=== PATIENT | female | born 1950 | race Caucasian/White ===

== ENCOUNTER 2017-07-17 03:10 | Inpatient (IN) | payer OTHER ==
--- NOTE | 2017-07-09 13:23 | History & Physical Pre-Op ---
General Information and [facility] MD Statement: I have seen and personally examined BULL CORDOVA and documented this H&P. The patient is a 67 year old F who presented with a patient stated chief complaint of low back pain that radiates to her right buttock, lateral hip, and anterior thigh. Source of Information: patient, old records Exam Limitations: no limitations History of Present Illness: Bull is a 67-year-old female who is complaining of progressively worsening low back pain that radiates to her right buttock, lateral hip, and anterior thigh. She does occasionally experience symptoms in her left leg. She denies any groin pain nor any weakness in her lower extremities. She does admit to numbness in her left buttock which began in January 2016 after her last surgery but does claim that it is improving. Bull states that her symptoms are improved with sitting as well as lying and worse with walking or standing. Bull is of course status post revision left L3-4, L4-5, and L5-S1 posterior lumbar decompression fusion with local bone from January, and her initial surgery in 2012. She has failed to respond to conservative measures and given the fact that her imaging studies show a right L1-2 disc herniation causing severe spinal stenosis along with a ganglion cyst at the L4-5 level and varying degrees of spinal stenosis at L2-3 and L3-4, Bull wants nothing more to do with nonsurgical treatment and has been scheduled for a revision L1-L5 posterior lumbar decompression fusion with local versus iliac crest bone grafting on 2017. Allergies/Medications Allergies: Coded Allergies: spironolactone (Intermediate, HIVES 02/07/16) Gadolinium-Containing Contrast Medi (HIVES/WELTS ON SIDE OF FACE 07/12/17) Iodinated Contrast- Oral and IV Dye (Iodinated Contrast Media - IV Dye) (HIVES/ WELTS ON SIDES OF FACE 07/12/17) lisinopril (Intermediate, INCREASED BP 02/07/16) Home Med list Acetaminophen (Tylenol Extra Strength) 500 MG TABLET 2 TAB PO PRN PAIN ( Reported) Albuterol Sulfate (Ventolin Hfa) 18 GM HFA.AER.AD 2 PUF INH PRN ASTHMA ( Reported) Calcium Carbonate 260 MG TABLET 650 MG PO BID HEALTH SUPPLEMENT Cetirizine HCl (Zyrtec) 10 MG TABLET 1 TAB PO DAILY ALLERGIES (Reported) Cholecalciferol (Vitamin D3) 1,000 UNIT TABLET 1,000 IU PO DAILY GENERAL HEALTH Levothyroxine Sodium 150 MCG TABLET 1 TAB PO DAILY THYROID (Reported) Losartan/Hydrochlorothiazide (Hyzaar 50-12.5 Tablet) 1 EACH TABLET 1 TAB PO DAILY BP (Reported) Magnesium Hydroxide (Milk Of Magnesia) (Unknown Strength) ORAL.SUSP (Unknown Dose) PO PRN CONSTIPATION (Reported) Mometasone/Formoterol (Dulera 200 Mcg/5 Mcg Inhaler) 200 MCG-5 MCG/ACTUATION HFA.AER.AD 2 PUF INH QAM ASTHMA (Reported) Montelukast Sodium (Singulair) 10 MG TABLET 1 TAB PO DAILY ALLERGIES ( Reported) Multivitamin (One Daily Multivitamin) 1 EACH TABLET 1 TAB PO DAILY GENERAL HEALTH Rosuvastatin Calcium (Crestor) 5 MG TABLET 1 TAB PO QPM CHOLESTEROL (Reported ) Triamcinolone Acetonide (Nasacort) 55 MCG SPRAY 2 SPRAY NASB DAILY PRN ALLERGIES/ASTHMA (Reported) Compliance With Home Meds: GOOD Past History Medical History Neurological: migraine EENT: allergies, sinusitis Cardiovascular: hypertension, hyperlipidemia Respiratory: asthma, bronchitis, obstructive sleep apnea Gastrointestinal: NONE Hepatic: NONE Renal: NONE Musculoskeletal: chronic back pain, disk herniation, degen joint disease, osteoarthritis (knees), sciatica, spinal stenosis Psychiatric: NONE Endocrine: hypothyroidism Blood Disorders: NONE Cancer(s): NONE MANAGER PSYCHOLOGY/Reproductive: NONE History of MRSA: No History of VRE: No History of CDIFF: No Surgical History Pertinent Surgical History: cholecystectomy, knee replacement (left 09/2016), laminectomy, spinal fusion, tubal ligation, s/p bunion resection, s/p PLDF 2012, s/p Rev. left L3-4, L4-5, L5-S1 PLDF with local bone, 02/08/16 Past Family/Social History Family History Relations & Conditions if any MOTHER (DiabetesHypertension). , Age 84. FHx: early [place], Onset: 50-60. BROTHER (MICOPDDiabetes Mellitus). Age 78. FH myocardial infarction male first degree age known FATHER, , Age 79; Cause: Gastric cancer. FH: gastric cancer SISTER (DiabetesHypertension). Age 70. Psychosocial History Where Do You Live? Home Who Do You Live With? 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 Exam & Diagnostic Data Last 24 Hrs of Vital Signs/I&O Height: 5'6" Weight: 250lbs. Physical Exam General Appearance Alert, Oriented X3, Cooperative, No Acute Distress Skin No Rashes, No Breakdown, No Significant Lesion HEENT Atraumatic, PERRLA, EOMI, Mucous Membr. moist/pink Neck Supple, No JVD, No thryomegaly, +2 Carotid Pulse wo Bruit Lymphatic Cervical nl Cardiovascular Regular Rate, Normal S1, Normal S2, No Murmurs Lungs Clear to Auscultation, Normal Air Movement Abdomen Normal Bowel Sounds, Soft, No Tenderness, No Masses Neurological Normal Speech, Strength at 5/5 X4 Ext, Normal Tone, Sensation Intact, Reflexes 2+, ANTALGIC GAIT Extremities No Clubbing, No Cyanosis, No Edema, Normal Pulses Vascular Normal Pulses Medication List Current Psychiatric Med(s): Rosuvastatin 5mg daily Synthroid 0.150mg daily Hyzaar 50/12.5 1 po daily Zyrtec 10mg daily Singulair 10mg daily Ventolin HFA inhaler 2 puffs in am Nasocort prn Assessment/Plan Assessment/Plan: Assessment: Right L1-2 HNP with severe spinal stenosis, L4-5 ganglion cyst, Spinal stenosis at L2- 3 and L3-4. Plan: Bull is scheduled for a revision posterior lumbar decompression fusion L1- L5 with local bone versus iliac crest bone grafting on 07/17/2017. We discussed the procedure in full detail as well as the pre-and postoperative course, follow -up care, and anticipated recovery. We also discussed the do's and don'ts and postoperative discharge instructions. We discussed the benefits, alternatives, and risks, not to exclude, , paralysis, infection, bleeding, continued pain , failure of the surgery, need for future surgery, DVT, vascular injury, CSF leak, etc., and given these risks, she still wishes to proceed. We discussed the use of Benadryl versus Claritin to be used with her morphine and Percocet due to itching. We also discussed the use of milk of magnesia tablets or liquids to help with constipation postoperatively. Bull is scheduled to follow- up with her primary care physician, Dr. Quiroz for preoperative clearance. Any changes in this patient's plan is based on this patient's outpatient clinical presentation. As Ranked By This Provider Problem List: 1. Hypothyroidism 2. Hypertension 3. Asthma 4. Obstructive sleep apnea 5. Osteoarthritis of knee 6. Migraine 7. Status post cholecystectomy 8. History of bilateral tubal ligation Copies To: Oewn PRUETT,Saul Attending MD Review Statement Attending Statement Attending MD Statement: examined this patient, discuss w/resident/PA/LOSS PREVENTION INVESTIGATOR, agreed w/resident/PA/LOSS PREVENTION INVESTIGATOR, reviewed images
[~2017-07-17] VITALS: Ht 167.6 cm; Wt 121.6 kg
[~2017-07-17 03:10] MED LIST: BISAC-EVAC10 M1 PR; CALCIUM CARBON260 M1 PO; CRESTOR5 M1 PO; DOCUSATE SODIU100 M3 PO; DULERA 200 MCG/13 GM INH; HYDROCHLOROTH12.5 M2 PO; HYZAAR 50-12.51 EACH PO; LEVOTHYROXINE150 MCG PO; MILK OF MA400 MG/52 PO; NASACORT16.9 ML NASB; NASOCORT NAS; ONE DAILY MULT1 EAC2 PO; PERCOCET 5-3251 EACH PO; SINGULAIR10 M1 PO; SYNTHROID125 MCG PO; TYLENOL EXTRA500 M2 PO; TYLENOL325 M1 PO; VENTOLIN HFA18 GM INH; VITAMIN D31000 UNI2 PO; ZYRTEC10 M3 PO
--- NOTE | 2017-07-17 10:51 | Operative Report ---
Operative/Inv Procedure Report Surgery Date: 07/17/17 Name of Procedure: Inspection of the lumbosacral fusion mass neurectomies L1-L2 L3-L4. Discectomy L1 to L2 3 L3 4. Lateral fusion with autologous local bone graft L1 through L4. Neuro lysis L2 and L3 nerve roots on the right Fluoroscopy. Pre-Operative Diagnosis: Spinal stenosis L1 L2 to L2 L3, L3-L4. Post-Operative Diagnosis: same Estimated Blood Loss: 200 Surgeon/Welding Machine Operator Resistance: Owen PRUETT,Saul Brasher M.D. Anesthesia: general endotracheal tube Operative/Procedure Note Note: After adequate general anesthesia was achieved, the patient was placed in the position. The back was sterilely prepped and draped. The previous incision was extended cephalad and the dissection was carried over the dorsal elements with electrocautery. A metallic optic was placed and fluoroscopy was used to identify surgical level. The high-speed bur was used to decorticate the lamina at L1-L2 and L2-L3 and L3-L4. The previous fusion was inspected on the right side extending down to the lower lumbar spine and found to be solid. Significant scar tissue was debrided at the L34 level the curettes and Kerrisons were used to perform the laminectomies at L1 L2 L3 and L4 on the right side. Discectomies were performed as well as an there was severe foraminal stenosis at all 3 levels. Neuro lysis were performed at the severely stenotic L1-L2 and L2- L3 levels involving the L2 and L3 nerve roots. The stenosis was most severe at the middle level L23. The wound was copiously irrigated and Gelfoam was laid over the laminotomy site. The lateral intertransverse process region was decorticated with the high-speed bur as were the facets. Bone graft was packed laterally from L1 to L4. Wound was irrigated and a closure the lumbar dorsal fascia was performed with a double suture as was the subcutaneous tissue and the skin was closed with trell
--- NOTE | 2017-07-17 11:49 | RADIOLOGY REPORT ---
EXAMINATION: Intraoperative fluoroscopic images, lumbar spine region CLINICAL INFORMATION: L5-S1 laminar fusion. COMPARISON: Plain film study dated 02/08/2016. TECHNIQUE: Intraoperative fluoroscopic imaging. FINDINGS: Multiple intraoperative views of the lumbar spine. Dose: 2.68 mg Image number: 3 images.
[2017-07-17] MEDS ORDERED: PERCOCET 5-3251 EACH PO (12:03)
[2017-07-17] MEDS ORDERED: TYLENOL EXTRA500 M2 PO (12:03)
[2017-07-17] MEDS ORDERED: BENADRYL25 MG PO (12:03)
[2017-07-17] MEDS ORDERED: DULCOLAX10 M1 RC (12:03)
[2017-07-17] MEDS ORDERED: COLACE100 M1 PO (12:03)
[2017-07-17] MEDS ORDERED: MILK OF MA400 MG/52 PO (12:03)
--- NOTE | 2017-07-17 12:04 | Patient Discharge Instructions ---
Acute Coronary Syndrome Inclusion Criteria At DC or during hospital stay patient has or had the following: ACS DIAGNOSIS No Discharge Core Measures Meds if any: Prescribed or Continued at Discharge Meds if any: NOT Prescribed or Continued at Discharge Congestive Heart Failure Inclusion Criteria At DC or during hospital stay patient has or had the following: CHF DIAGNOSIS No Discharge Core Measures Meds if any: Prescribed or Continued at Discharge Meds if any: NOT Prescribed or Continued at Discharge Cerebrovascular accident Inclusion Criteria At DC or during hospital stay patient has or had the following: CVA/TIA Diagnosis No Discharge Core Measures Meds if any: Prescribed or Continued at Discharge Meds if any: NOT Prescribed or Continued at Discharge Venous thromboembolism Inclusion Criteria VTE Diagnosis No VTE Type NONE VTE Confirmed by (Test) NONE Discharge Core Measures - Per Current guidelines, there needs to be overlap - treatment for the first 5 days of Warfarin therapy. - If discharged on Warfarin prior to 5 days of - overlap therapy, the patient will need to be - assessed for post discharge needs including - *Post discharge parental anticoagulation - *Warfarin and/or parental anticoagulation education - *Follow up date to check INR post discharge At least 5 days overlap therapy as Inpatient No Meds if any: Prescribed or Continued at Discharge Note: Overlap Therapy is Warfarin and Anticoagulant Meds if any: NOT Prescribed or Continued at Discharge
[2017-07-17 12:10] LABS: ABSOLUTE BASOPHIL COUNT 0 /CUMM (0.0-0.2); ABSOLUTE EOSINOPHIL COUNT 0.1 /CUMM (0.0-0.7); ABSOLUTE GRANULOCYTE CT 7.4 /CUMM (1.4-6.5); ABSOLUTE LYMPH COUNT 1.1 /CUMM (1.2-3.4); ABSOLUTE MONOCYTE COUNT 0.2 /CUMM (0.10-0.60); BASOPHIL % 0.1 % (0.0-2.0); EOSINOPHIL % 0.7 % (0-5); HEMATOCRIT 34.2 % (37-47); MEAN CORPUSCULAR HGB CONC 32.5 G/DL (33.0-37.0); MEAN CORPUSCULAR VOLUME 83.2 FL (81.0-99.0); MEAN PLATELET VOLUME 7.3 FL (7.4-10.4); PLATELET COUNT 214 /CUMM (130-400); RBC DISTRIBUTION WIDTH 14.8 % (11.5-14.5); RED BLOOD CELL CT 4.11 /CUMM (4.20-5.40); WHITE BLOOD CELL COUNT 8.8 /CUMM (4.8-10.8)
[2017-07-17 12:16] LABS: GRANULOCYTE % 84.6 % (42.2-75.2)
--- NOTE | 2017-07-17 13:24 | Cons- Medical ---
Raciel Ardon 07/17/17 1324: General Information and HPI Consulting Request Date of Consult: 07/17/17 Requested By: Saul Weaver MD Reason for Consult: Medical comanagement of asthma, hypertension Source of Information: patient, family Exam Limitations: no limitations History of Present Illness: This is a 67-year-old female from [facility], with past medical history significant for asthma, hypothyroidism, hypertension, hyperlipidemia, obstructive sleep apnea not on CPAP, chronic back pain, degenerative joint disease, disc herniation, knee osteoarthritis, sciatica, spinal stenosis presented for elective back surgery for low back pain radiating to right buttock, leg and hip and anterior thigh. She is Status post revision left L3-4, L4-5, and L5-S1 posterior lumbar decompression fusion with local bone from January, and her initial surgery in 2012. She has failed to respond to conservative measures and given the fact that her imaging studies show a right L1-2 disc herniation causing severe spinal stenosis along with a ganglion cyst at the L4-5 level and varying degrees of spinal stenosis at L2-3 and L3-4, Dottie was scheduled for a revision L1-L5 posterior lumbar decompression fusion with local versus iliac crest bone grafting on 07/17/2017. She underwent lumbosacral fusion mass neurectomies L1- L2 L3-L4. Discectomy L1 to L2 3 L3 4. Lateral fusion with autologous local bone graft L1 through L4. Tolerated her procedure. Medical consult was requested for comanagement of her medical conditions asthma, hypertension. Dottie has progressively worsening low back pain that radiates to her right buttock, lateral hip, and anterior thigh. She does occasionally experience symptoms in her left leg. She denies any groin pain nor any weakness in her lower extremities. She does admit to numbness in her left buttock which began in January 2016 after her last surgery but does claim that it is improving. Dottie states that her symptoms are improved with sitting as well as lying and worse with walking or standing. On review of systems she denies any chest pain, short of breath, palpitations, fever, chills, productive cough, nausea, vomiting, abdominal pain, change in bladder or bowel habits. 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 She was never intubated. Hospitalized twice in the past for asthma exacerbations. She is compliant With her medications and inhalers. She never smoked, no alcohol abuse, no illicit drug abuse. She lives with her in [facility] and takes care of herself. Allergies/Medications Allergies: Coded Allergies: spironolactone (Intermediate, HIVES 02/07/16) Gadolinium-Containing Contrast Medi (HIVES/WELTS ON SIDE OF FACE 07/12/17) Iodinated Contrast- Oral and IV Dye (Iodinated Contrast Media - IV Dye) (HIVES/ WELTS ON SIDES OF FACE 07/12/17) lisinopril (Intermediate, INCREASED BP 02/07/16) Home Med List: Acetaminophen (Tylenol Extra Strength) 500 MG TABLET 2 TAB PO PRN PAIN ( Reported) Acetaminophen (Tylenol Extra Strength) 500 MG TABLET 1 TAB PO TID PRN TEMP>101 Albuterol Sulfate (Ventolin Hfa) 18 GM HFA.AER.AD 2 PUF INH PRN ASTHMA ( Reported) Bisacodyl (Dulcolax) 10 MG SUPP.RECT 1 SUP RC DAILY PRN CONSTIPATION Calcium Carbonate 260 MG TABLET 650 MG PO BID HEALTH SUPPLEMENT Cetirizine HCl (Zyrtec) 10 MG TABLET 1 TAB PO DAILY ALLERGIES (Reported) Cholecalciferol (Vitamin D3) 1,000 UNIT TABLET 1,000 IU PO DAILY GENERAL HEALTH diphenhydrAMINE HCl (Benadryl) 25 MG CAP 1 CAP PO Q6-PRN ITCHING Docusate Sodium (Colace) 100 MG CAPSULE 1 CAP PO BID PRN CONSTIPATION Levothyroxine Sodium 150 MCG TABLET 1 TAB PO DAILY THYROID (Reported) Losartan/Hydrochlorothiazide (Hyzaar 50-12.5 Tablet) 1 EACH TABLET 1 TAB PO DAILY BP (Reported) Magnesium Hydroxide (Milk Of Magnesia) (Unknown Strength) ORAL.SUSP (Unknown Dose) PO PRN CONSTIPATION (Reported) Magnesium Hydroxide (Milk Of Magnesia) 400 MG/5 ML ORAL.SUSP 5 ML PO Q8P PRN CONSTIPATION Mometasone/Formoterol (Dulera 200 Mcg/5 Mcg Inhaler) 200 MCG-5 MCG/ACTUATION HFA.AER.AD 2 PUF INH QAM ASTHMA (Reported) Montelukast Sodium (Singulair) 10 MG TABLET 1 TAB PO DAILY ALLERGIES ( Reported) Multivitamin (One Daily Multivitamin) 1 EACH TABLET 1 TAB PO DAILY GENERAL HEALTH Oxycodone HCl/Acetaminophen (Percocet 5-325 MG Tablet) 5 MG-325 MG TABLET 1-2 TAB PO Q4-6 PRN PAIN Rosuvastatin Calcium (Crestor) 5 MG TABLET 1 TAB PO QPM CHOLESTEROL (Reported ) Triamcinolone Acetonide (Nasacort) 55 MCG SPRAY 2 SPRAY NASB DAILY PRN ALLERGIES/ASTHMA (Reported) Current Medications: Current Medications Sig/Ayana Start time Last Medication Dose Route Stop Time Status Admin Acetaminophen 650 MG Q4P PRN 07/17 1145 AC PO Albuterol Sulfate 2 PUF Q6PRN PRN 07/17 1130 AC INH Atorvastatin Calcium 20 MG 1700 07/17 1700 AC PO Bisacodyl 10 MG DAILY NEEDED PRN 07/17 1145 AC OH Budesonide/ 2 PUF BID 07/17 2200 AC Formoterol Fumarate INH Calcium Carbonate 650 MG BID 07/17 2200 AC PO Cefazolin Sodium 1,000 MG IQ8 07/17 1600 AC IV 07/18 0801 Cefazolin Sodium 2,000 MG ONCE 07/17 0000 NR IV 07/17 2359 Cholecalciferol 1,000 IU DAILY 07/18 1000 AC PO Diphenhydramine HCl 25 MG Q4P PRN 07/17 1200 AC PO Docusate Sodium 100 MG TID 07/17 1600 AC PO Fluticasone 2 SPRAY DAILY 07/18 1000 AC Propionate CLOVIS Hydrochlorothiazide 12.5 MG DAILY 07/18 1000 AC PO Lactated Ringer's 1,000 ML Q10H 07/17 1200 AC IV Levothyroxine Sodium 0.15 MG DAILY 07/18 1000 AC PO Loratadine 10 MG DAILY 07/18 1000 AC PO Losartan Potassium 50 MG DAILY 07/18 1000 AC PO Magnesium Hydroxide 30 ML Q8P PRN 07/17 1200 AC PO Montelukast Sodium 10 MG DAILY 07/18 1000 AC PO Morphine Sulfate 1 MG Q3P PRN 07/17 1145 AC IV Multivitamins 1 TAB DAILY 07/18 1000 AC Therapeutic PO Ondansetron HCl 4 MG Q6P PRN 07/17 1145 AC IV Oxycodone/ 1 TAB Q4P PRN 07/17 1145 AC Acetaminophen PO Oxycodone/ 2 TAB Q4P PRN 07/17 1145 AC Acetaminophen PO Trimethobenzamide HCl 200 MG Q6P PRN 07/17 1145 AC IM Review of Systems Review of Systems Constitutional: Denies: chills, diaphoresis, fever, malaise, weakness, unexplained weight loss. EENTM: Denies: blurred vision, double vision, visual changes. Cardiovascular: Denies: chest pain, edema, orthopena, palpitations, peripheral edema, syncope. Respiratory: Denies: cough, hemoptysis, orthopnea, short of breath, sputum production, stridor, wheezing. GI: Denies: abdominal pain, bloating, constipation, distention, bowel incontinence, nausea. Genitourinary: Denies: discharge, dysuria, frequency. Musculoskeletal: Reports: back pain, joint pain. Denies: gout, joint swelling, muscle pain, muscle stiffness. Neurological/Psychological: Reports: numbness, tingling. Denies: anxiety, ataxia, headache, paresthesia, pre-existing deficit. 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 left L3-4, L4-5, L5-S1 PLDF with local bone, 02/08/16 Family History Relations & Conditions If Any: MOTHER (DiabetesHypertension). , Age 84. FHx: early MT, Onset: 50-60. BROTHER (MICOPDDiabetes Mellitus). Age 78. FH myocardial infarction male first degree age known FATHER, , Age 79; Cause: Gastric cancer. FH: gastric cancer SISTER (DiabetesHypertension). Age 70. Psychosocial History Where Do You Live? Home Who Do You Live With? 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 Exam & Diagnostic Data Last 24 Hrs of Vital Signs/I&O Laboratory Tests 07/17 1200 Hematology CBC w Diff NO MAN DIFF REQ WBC (4.8 - 10.8 /CUMM) 8.8 RBC (4.20 - 5.40 /CUMM) 4.11 L Hgb (12.0 - 16.0 G/DL) 11.1 L Hct (37 - 47 %) 34.2 L MCV (81.0 - 99.0 FL) 83.2 MCH (27.0 - 31.0 PG) 27.0 MCHC (33.0 - 37.0 G/DL) 32.5 L RDW (11.5 - 14.5 %) 14.8 H Plt Count (130 - 400 /CUMM) 214 MPV (7.4 - 10.4 FL) 7.3 L Gran % (42.2 - 75.2 %) 84.6 H Lymphocytes % (20.5 - 51.1 %) 12.2 L Monocytes % (1.7 - 9.3 %) 2.4 Eosinophils % (0 - 5 %) 0.7 Basophils % (0.0 - 2.0 %) 0.1 Absolute Granulocytes (1.4 - 6.5 /CUMM) 7.4 H Absolute Lymphocytes (1.2 - 3.4 /CUMM) 1.1 L Absolute Monocytes (0.10 - 0.60 /CUMM) 0.2 Absolute Eosinophils (0.0 - 0.7 /CUMM) 0.1 Absolute Basophils (0.0 - 0.2 /CUMM) 0 Physical Exam General Appearance: well developed/nourished, no apparent distress, alert, awake Other Physical Findings: General Appearance Alert, Oriented X3, Cooperative, No Acute Distress Skin No Rashes, No Breakdown, No Significant Lesion HEENT Atraumatic, PERRLA, EOMI, Mucous Membr. moist/pink Neck Supple, No JVD, No thryomegaly, +2 Carotid Pulse wo Bruit Lymphatic Cervical nl Cardiovascular Regular Rate, Normal S1, Normal S2, No Murmurs Lungs Clear to Auscultation, Normal Air Movement Abdomen Normal Bowel Sounds, Soft, No Tenderness, No Masses Neurological Normal Speech, Strength at 5/5 X4 Ext, Sensation Intact, Reflexes 2 + Extremities No Clubbing, No Cyanosis, No Edema, Normal Pulses Vascular Normal Pulses Last 24 Hrs of Labs/Bong: Laboratory Tests 07/17/17 1603: Anion Gap 11, Estimated GFR > 60, BUN/Creatinine Ratio 24.3 07/17/17 1200: CBC w Diff NO MAN DIFF REQ, RBC 4.11 L, MCV 83.2, MCH 27.0, MCHC 32.5 L, RDW 14.8 H, MPV 7.3 L, Gran % 84.6 H, Lymphocytes % 12.2 L, Monocytes % 2.4, Eosinophils % 0.7, Basophils % 0.1, Absolute Granulocytes 7.4 H, Absolute Lymphocytes 1.1 L, Absolute Monocytes 0.2, Absolute Eosinophils 0.1, Absolute Basophils 0 Assessment/Plan Assessment/Plan This is a 67-year-old female from [facility], with past medical history significant for asthma, hypothyroidism, hypertension, hyperlipidemia, obstructive sleep apnea not on CPAP, chronic back pain, degenerative joint disease, disc herniation, knee osteoarthritis, sciatica, spinal stenosis presented for elective back surgery for low back pain radiating to right buttock, leg and hip and anterior thigh. She is Status post revision left L3-4, L4-5, and L5-S1 posterior lumbar decompression fusion with local bone from January, and her initial surgery in 2012. She has failed to respond to conservative measures and given the fact that her imaging studies show a right L1-2 disc herniation causing severe spinal stenosis along with a ganglion cyst at the L4-5 level and varying degrees of spinal stenosis at L2-3 and L3-4, Dottie was scheduled for a revision L1-L5 posterior lumbar decompression fusion with local versus iliac crest bone grafting on 07/17/2017. She underwent lumbosacral fusion mass neurectomies L1- L2 L3-L4. Discectomy L1 to L2 3 L3 4. Lateral fusion with autologous local bone graft L1 through L4. Tolerated her procedure. Medical consult was requested for comanagement of her medical conditions asthma, hypertension. --- Vitals within normal limits Labs pending 1. 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 She was never intubated. Hospitalized twice in the past for asthma exacerbations. She is compliant With her medications and inhalers. She never smoked. * Continue total respiratory care * Nebulizer treatments * Continue home medications * Continue albuterol, Symbicort, Flonase, singular * Maintain oxygen saturation above 88 * Provide supplemental oxygen whenever necessary 2. Hypothyroidism continue home dose of levothyroxine 3. Hypertension continue losartan and hydrochlorothiazide 4. Hyperlipidemia continue statin 5. Pain management as per primary team. please continue bowel regimen. Avoid constipation. antiemetics if necessary for nausea and vomiting 6. Obstructive sleep apnea not on CPAP She is full code DVT prophylaxis alps only Continue pain management Please get basic labs..BEP Attending recommendations to follow Consult Acknowledgment - Thank you for your consult request. Ozzie PRUETT,[facility] 07/17/17 1429: Assessment/Plan Consult Acknowledgment - Thank you for your consult request. Attending Review Statement Attending Statement Attending MD Statement: examined this patient, discuss w/resident/PA/METAL SPINNER, agreed w/resident/PA/METAL SPINNER, reviewed EMR data (avail), discussed with nursing, reviewed images, amended to note Attending Assessment/Plan: 67 y/o F with pmh sig for asthma, hypothyroidism, hypertension, hyperlipidemia, obstructive sleep apnea not on CPAP, chronic back pain, degenerative joint disease, disc herniation, knee osteoarthritis, sciatica, spinal stenosis who is status post Inspection of the lumbosacral fusion mass neurectomies L1-L2 L3-L4. Discectomy L1 to L2 3 L3 4. Lateral fusion with autologous local bone graft L1 through L4. Neuro lysis L2 and L3 nerve roots on the right Fluoroscopy due to Spinal stenosis L1 L2 to L2 L3, L3-L4. Medicine consult was obtained to comanage her medical problems. Currently patient is completing of some back pain. Her vital signs are stable. She denies any chest been, shortness of breath. She claims that she follows with her doctor regularly, takes her medications regularly and her medical conditions are stable overall. She takes Dulera for asthma and she does not want to switch that with Symbicort. vss. on exam; aox3, nad. cv; s1,s2, rrr resp; clear abd; soft, nt, bs+ ext; no edema. Laboratory Tests 07/17 1200 Hematology CBC w Diff NO MAN DIFF REQ WBC (4.8 - 10.8 /CUMM) 8.8 RBC (4.20 - 5.40 /CUMM) 4.11 L Hgb (12.0 - 16.0 G/DL) 11.1 L Hct (37 - 47 %) 34.2 L MCV (81.0 - 99.0 FL) 83.2 MCH (27.0 - 31.0 PG) 27.0 MCHC (33.0 - 37.0 G/DL) 32.5 L RDW (11.5 - 14.5 %) 14.8 H Plt Count (130 - 400 /CUMM) 214 MPV (7.4 - 10.4 FL) 7.3 L Gran % (42.2 - 75.2 %) 84.6 H Lymphocytes % (20.5 - 51.1 %) 12.2 L Monocytes % (1.7 - 9.3 %) 2.4 Eosinophils % (0 - 5 %) 0.7 Basophils % (0.0 - 2.0 %) 0.1 Absolute Granulocytes (1.4 - 6.5 /CUMM) 7.4 H Absolute Lymphocytes (1.2 - 3.4 /CUMM) 1.1 L Absolute Monocytes (0.10 - 0.60 /CUMM) 0.2 Absolute Eosinophils (0.0 - 0.7 /CUMM) 0.1 Absolute Basophils (0.0 - 0.2 /CUMM) 0 Assessment and recommendations. 67 y/o F with pmh sig for asthma, hypothyroidism, hypertension, hyperlipidemia, obstructive sleep apnea not on CPAP, chronic back pain, degenerative joint disease, disc herniation, knee osteoarthritis, sciatica, spinal stenosis who is status post Inspection of the lumbosacral fusion mass neurectomies L1-L2 L3-L4. Discectomy L1 to L2 3 L3 4. Lateral fusion with autologous local bone graft L1 through L4. Neuro lysis L2 and L3 nerve roots on the right Fluoroscopy due to Spinal stenosis L1 L2 to L2 L3, L3-L4. Medicine consult was obtained to comanage her medical problems. Patient should be resumed back on her home medications. She does not want to switch her Dulera with Symbicort. She claims that she brought her inhaler with her delivery to resume her Dulera. Continue her antihypertensive, Synthroid as well as her statin. Albuterol MDI when necessary. Pain management as per orthopedic surgery. Encourage ablation with PT when okay with orthopedic surgery as well as incentive spirometer use. DVT prophylaxis: ALPS. Thank you for allowing us to participate in the care of this patient. Will follow along with you.
[2017-07-17 14:49] VITALS: BP 136/70
--- NOTE | 2017-07-17 15:08 | PN- Neurosurgical ---
Subjective Subjective: POSTOP CHECK Patient reports postop back pain, which is currently controlled. She is tolerating liquids without any nausea/vomiting and is eager to eat food. She reports voiding. She offers no other complaints. Objective Vital Signs and I&Os Vital Signs Date Time Temp Pulse Resp B/P B/P Pulse O2 O2 Flow FiO2 Mean Ox Delivery Rate 07/17 1449 97.9 76 18 136/70 99 Nasal 2.0L Cannula Physical Exam: Gen - resting comfortably with 2L O2 via nc, awake an alert in NAD Cardiac - S1S2 noted Lungs - CTAB Abd - soft, nontender Ext - moves all extremities, motor an sensory intact, alps in place, no significant edema or calf tenderness B/L Back - midline dressing c/d/i, appropriately tender joe-incisionally Current Medications: Current Medications Sig/Ayana Start time Last Medication Dose Route Stop Time Status Admin Acetaminophen 650 MG Q4P PRN 07/17 1145 AC PO Acetaminophen 1,000 MG .STK-MED ONE 07/17 640 DC IV 07/17 0642 Albuterol Sulfate 2 PUF Q6PRN PRN 07/17 1130 AC INH Atorvastatin Calcium 20 MG 1700 07/17 1700 CAN PO Bisacodyl 10 MG DAILY NEEDED PRN 07/17 1145 AC MS Budesonide/ 2 PUF BID 07/17 2200 CAN Formoterol Fumarate INH Calcium Carbonate 650 MG BID 07/17 2200 AC PO Cefazolin Sodium 1,000 MG IQ8 07/17 1600 AC IV 07/18 0801 Cefazolin Sodium 2,000 MG ONCE 07/17 0000 NR IV 07/17 2359 Cholecalciferol 1,000 IU DAILY 07/18 1000 AC PO Diphenhydramine HCl 25 MG Q4P PRN 07/17 1200 AC PO Docusate Sodium 100 MG TID 07/17 1600 AC PO Fentanyl Citrate 250 MCG .STK-MED ONE 07/17 0640 DC IM 07/17 06 Fluticasone 2 SPRAY DAILY 07/18 1000 AC Propionate CLOVIS Hydrochlorothiazide 12.5 MG DAILY 07/18 1000 AC PO Hydromorphone HCl 2 MG .STK-MED ONE 07/17 0640 DC IM 07/17 06 Ketamine HCl 50 MG .STK-MED ONE 07/17 640 DC IM 07/17 06 Lactated Ringer's 1,000 ML Q10H 07/17 1200 AC 07/17 IV 1439 Levothyroxine Sodium 0.15 MG DAILY 07/18 1000 AC PO Loratadine 10 MG DAILY 07/18 1000 AC PO Losartan Potassium 50 MG DAILY 07/18 1000 AC PO Magnesium Hydroxide 30 ML Q8P PRN 07/17 1200 AC PO Midazolam HCl 2 MG .STK-MED ONE 07/17 0641 DC IM 07/17 0642 Montelukast Sodium 10 MG DAILY 07/18 1000 AC PO Morphine Sulfate 1 MG Q3P PRN 07/17 1145 AC IV Multivitamins 1 TAB DAILY 07/18 1000 AC Therapeutic PO Non-Formulary 0 SEE ADMIN CRITERIA 07/17 1500 UNVr Medication ANY Non-Formulary 0 SEE ADMIN CRITERIA 07/17 1500 UNVr Medication ANY Ondansetron HCl 4 MG Q6P PRN 07/17 1145 AC IV Oxycodone/ 1 TAB Q4P PRN 07/17 1145 AC 07/17 Acetaminophen PO 1443 Oxycodone/ 2 TAB Q4P PRN 07/17 1145 AC Acetaminophen PO Remifentanil HCl 4 MG .STK-MED ONE 07/17 0640 DC IV 07/17 0641 Trimethobenzamide HCl 200 MG Q6P PRN 07/17 1145 AC IM Results Last 48 Hours of Labs: Laboratory Tests 07/17 1199 Hematology CBC w Diff NO MAN DIFF REQ WBC (4.8 - 10.8 /CUMM) 8.8 RBC (4.20 - 5.40 /CUMM) 4.11 L Hgb (12.0 - 16.0 G/DL) 11.1 L Hct (37 - 47 %) 34.2 L MCV (81.0 - 99.0 FL) 83.2 MCH (27.0 - 31.0 PG) 27.0 MCHC (33.0 - 37.0 G/DL) 32.5 L RDW (11.5 - 14.5 %) 14.8 H Plt Count (130 - 400 /CUMM) 214 MPV (7.4 - 10.4 FL) 7.3 L Gran % (42.2 - 75.2 %) 84.6 H Lymphocytes % (20.5 - 51.1 %) 12.2 L Monocytes % (1.7 - 9.3 %) 2.4 Eosinophils % (0 - 5 %) 0.7 Basophils % (0.0 - 2.0 %) 0.1 Absolute Granulocytes (1.4 - 6.5 /CUMM) 7.4 H Absolute Lymphocytes (1.2 - 3.4 /CUMM) 1.1 L Absolute Monocytes (0.10 - 0.60 /CUMM) 0.2 Absolute Eosinophils (0.0 - 0.7 /CUMM) 0.1 Absolute Basophils (0.0 - 0.2 /CUMM) 0 Assessment/Plan Assessment/Plan 67 F POD 0 s/p revision posterior lumbar decompression fusion L1-L4 with autologous local bone graft secondary to spinal stenosis L1-L4, recovering well postoperatively Advance to cardiac diet Cont IVF Pain regimen prn Postop abx - ancef x3 Home meds ordered Bowel regimen on board TRC, encourage IS PT eval DVT ppx - alps, ambulation Appreicate medicines involvement Core Measures Venous Thromboembolism VTE Risk Factors Surgery No Mechanical VTE Prophylaxis d/t N/A MechProphylax Ordered No VTE Pharm Prophylaxis d/t Surgical Contraindication (Spine surgery)
--- NOTE | 2017-07-17 15:16 | Surg Short-stay <48hrs Dis Sum ---
Visit Information Visit Dates Admission Date: 07/17/17 Surgical Short Stay DC Summary Admission Diagnosis: Spinal stenosis L1 L2 to L2 L3, L3-L4 Final Diagnosis: Same s/p inspection of the lumbosacral fusion mass neurectomies L1-L2 L3-L4, discectomy L1 to L2 3 L3 4, lateral fusion with autologous local bone graft L1 through L4, neuro lysis L2 and L3 nerve roots on the right Fluoroscopy. Procedure(s): 1. Inspection of the lumbosacral fusion mass neurectomies L1-L2 L3-L4. 2. Discectomy L1 to L2 3 L3 4. 3. Lateral fusion with autologous local bone graft L1 through L4. 4. Neuro lysis L2 and L3 nerve roots on the right Fluoroscopy. Summary/Significant Findings: Patient was admitted on 07/17/17 for an elective inspection of the lumbosacral fusion mass neurectomies L1-L2 L3-L4, discectomy L1 to L2 3 L3 4, lateral fusion with autologous local bone graft L1 through L4, neuro lysis L2 and L3 nerve roots on the right Fluoroscopy with Dr. Weaver. Patient tolerated the procedure and was tranferred to general surgical floor in stable condition. Dr. Horne, from medicine was consulted for medical management. Diet was advanced and tolerated. At time of hospital discharge, vital signs were stable, neurovascular status was intact, and pain was controlled with the use of oral pain medications. Condition at Discharge: Stable Discharge instructions provided to patient/family: Yes Post discharge follow-up plan: Call to confirm for a follow up appointment with Dr. Weaver
[2017-07-17 21:59] VITALS: BP 108/68
[2017-07-18 06:25] VITALS: BP 138/80
--- NOTE | 2017-07-18 07:39 | PN- Medicine Consult ---
Raciel Ardon 07/18/17 0739: Assessment/PlanMedical Consult Assessment/Plan Assessment: This is a 67-year-old female from [facility], with past medical history significant for asthma, hypothyroidism, hypertension, hyperlipidemia, obstructive sleep apnea not on CPAP, chronic back pain, degenerative joint disease, disc herniation, knee osteoarthritis, sciatica, spinal stenosis presented for elective back surgery for low back pain radiating to right buttock, leg and hip and anterior thigh. She is Status post revision left L3-4, L4-5, and L5-S1 posterior lumbar decompression fusion with local bone from January, and her initial surgery in 2012. She has failed to respond to conservative measures and given the fact that her imaging studies show a right L1-2 disc herniation causing severe spinal stenosis along with a ganglion cyst at the L4-5 level and varying degrees of spinal stenosis at L2-3 and L3-4, Dottie was scheduled for a revision L1-L5 posterior lumbar decompression fusion with local versus iliac crest bone grafting on 07/17/2017. She underwent lumbosacral fusion mass neurectomies L1- L2 L3-L4. Discectomy L1 to L2 3 L3 4. Lateral fusion with autologous local bone graft L1 through L4. Tolerated her procedure. Medical consult was requested for comanagement of her medical conditions asthma, hypertension. --- Vitals within normal limits Labs pending 1. 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 She was never intubated. Hospitalized twice in the past for asthma exacerbations. She is compliant With her medications and inhalers. She never smoked. * Continue total respiratory care * Nebulizer treatments * Continue home medications * Continue albuterol, dulera, Flonase, singular * Maintain oxygen saturation above 88 * Provide supplemental oxygen whenever necessary 2. Hypothyroidism continue home dose of levothyroxine 3. Hypertension continue losartan and hydrochlorothiazide 4. Hyperlipidemia continue rosuvastatin 5. Pain management as per primary team. please continue bowel regimen. Avoid constipation. antiemetics if necessary for nausea and vomiting 6. Obstructive sleep apnea not on CPAP 7. Leukocytosis 15,000 mostly from postoperative stress. Continue to monitor She is full code DVT prophylaxis alps only Continue pain management Attending recommendations to follow Plan: see above Subjective Subjective: Patient was seen and examined. Alert awake and oriented. No acute events overnight. Vitals were stable. She is on room air. Offers no complaints this morning. Review of Systems Constitutional: Denies: see HPI. Objective Last 24 Hrs of Vital Signs/I&O Vital Signs Date Time Temp Pulse Resp B/P B/P Pulse O2 O2 Flow FiO2 Mean Ox Delivery Rate 07/18 0907 82 132/78 07/18 0625 98.4 85 20 138/80 94 Room Air 07/17 2159 98.2 83 20 108/68 95 07/17 1624 Nasal 2.0L Cannula 07/17 1600 Nasal 2.0L Cannula 07/17 1449 97.9 76 18 136/70 99 Nasal 2.0L Cannula 07/17 1435 99 Nasal 2.0L Cannula Intake & Output 07/18 1600 07/18 0800 07/18 0000 Intake Total 800 1150 Output Total 650 1100 Balance 150 50 Intake, IV 800 700 Intake, Oral 450 Number 0 Bowel Movements Output, Urine 650 1100 Physical Exam Other Physical Findings: General Appearance Alert, Oriented X3, Cooperative, No Acute Distress Skin No Rashes, No Breakdown, No Significant Lesion HEENT Atraumatic, PERRLA, EOMI, Mucous Membr. moist/pink Neck Supple, No JVD, No thryomegaly, +2 Carotid Pulse wo Bruit Lymphatic Cervical nl Cardiovascular Regular Rate, Normal S1, Normal S2, No Murmurs Lungs Clear to Auscultation, Normal Air Movement Abdomen Normal Bowel Sounds, Soft, No Tenderness, No Masses Extremities No Clubbing, No Cyanosis, No Edema, Normal Pulses Vascular Normal Pulses Back - midline dressing c/d/i, appropriately tender joe-incisionally Current Medications: Current Medications Sig/Ayana Start time Last Medication Dose Route Stop Time Status Admin Acetaminophen 650 MG Q4P PRN 07/17 1145 AC PO Albuterol Sulfate 2 PUF Q6PRN PRN 07/17 1130 AC INH Atorvastatin Calcium 20 MG 1700 07/17 1700 CAN PO Bisacodyl 10 MG DAILY NEEDED PRN 07/17 1145 AC IL Budesonide/ 2 PUF BID 07/17 220 CAN Formoterol Fumarate INH Calcium Carbonate 650 MG BID 07/17 2200 AC 07/18 PO 0907 Cefazolin Sodium 1,000 MG IQ8 07/17 1600 DC 07/18 IV 07/18 0801 0730 Cefazolin Sodium 2,000 MG ONCE 07/17 0000 DC IV 07/17 2359 Cholecalciferol 1,000 IU DAILY 07/18 1000 AC 07/18 PO 0907 Diphenhydramine HCl 25 MG Q4P PRN 07/17 1200 AC PO Docusate Sodium 100 MG TID 07/17 1600 AC 07/18 PO 0907 Fluticasone 2 SPRAY DAILY 07/18 1000 AC 07/18 Propionate [place]OV[place] 0906 Hydrochlorothiazide 12.5 MG DAILY 07/18 1000 AC 07/18 PO 0907 Hydromorphone HCl 2 MG .STK-MED ONE 07/17 1130 DC IM 07/17 1131 Hydromorphone HCl 2 MG .STK-MED ONE 07/17 1130 DC IM 07/17 1131 Lactated Ringer's 1,000 ML Q10H 07/17 1200 DC 07/18 IV 0029 Levothyroxine Sodium 0.15 MG DAILY AC 07/19 0700 AC PO Levothyroxine Sodium 0.15 MG DAILY 07/18 1000 DC 07/18 PO 0729 Loratadine 10 MG DAILY 07/18 1000 AC 07/18 PO 0907 Losartan Potassium 50 MG DAILY 07/18 1000 AC 07/18 PO 0907 Magnesium Hydroxide 30 ML Q8P PRN 07/17 1200 AC 07/18 PO 0907 Montelukast Sodium 10 MG DAILY 07/18 1000 AC 07/18 PO 0907 Morphine Sulfate 1 MG Q3P PRN 07/17 1145 AC IV Multivitamins 1 TAB DAILY 07/18 1000 AC 07/18 Therapeutic PO 0907 Ondansetron HCl 4 MG Q6P PRN 07/17 1145 AC IV Oxycodone/ 1 TAB Q4P PRN 07/17 1145 AC 07/17 Acetaminophen PO 1842 Oxycodone/ 2 TAB Q4P PRN 07/17 1145 AC 07/18 Acetaminophen PO 0907 Patient Own 1 UNIT BID 07/18 2200 AC 07/18 Medication INH 0906 Rosuvastatin Calcium 5 MG 1700 07/17 1700 AC 07/17 PO 1721 Trimethobenzamide HCl 200 MG Q6P PRN 07/17 1145 AC IM Results Last 24 Hrs Lab/Bong Results: Laboratory Tests 07/18/17 0710: CBC w Diff NO MAN DIFF REQ, RBC 3.74 L, MCV 82.0, MCH 27.6, MCHC 33.6, RDW 14.4 , MPV 7.9, Gran % 79.8 H, Lymphocytes % 12.0 L, Monocytes % 8.1, Eosinophils % 0.1, Basophils % 0, Absolute Granulocytes 12.4 H, Absolute Lymphocytes 1.9, Absolute Monocytes 1.3 H, Absolute Eosinophils 0, Absolute Basophils 0 07/17/17 1603: Anion Gap 11, Estimated GFR > 60, BUN/Creatinine Ratio 24.3 07/17/17 1200: CBC w Diff NO MAN DIFF REQ, RBC 4.11 L, MCV 83.2, MCH 27.0, MCHC 32.5 L, RDW 14.8 H, MPV 7.3 L, Gran % 84.6 H, Lymphocytes % 12.2 L, Monocytes % 2.4, Eosinophils % 0.7, Basophils % 0.1, Absolute Granulocytes 7.4 H, Absolute Lymphocytes 1.1 L, Absolute Monocytes 0.2, Absolute Eosinophils 0.1, Absolute Basophils 0 Ozzie PRUETT,[facility] 07/18/17 1328: Attending MD Review Statement Attending Sign Off Attending Cosign Statement: I have: examined this patient, reviewed [facility] EMR data, personally reviewd images, discussd w/resident/PA/BILINGUAL SALES REPRESENTATIVE, discussed mgmt plan w/shadi, discussed mgmt plan w/pt, agreed w/resident/PA/BILINGUAL SALES REPRESENTATIVE, amended to note. Other Findings: Patient seen and examined, overall feels good. Pain is well controlled. Denies any other complaints. Vital Signs Date Time Temp Pulse Resp B/P B/P Pulse O2 O2 Flow FiO2 Mean Ox Delivery Rate 07/18 0907 82 132/78 07/18 0625 98.4 85 20 138/80 94 Room Air 07/17 2159 98.2 83 20 108/68 95 07/17 1624 Nasal 2.0L Cannula 07/17 1600 Nasal 2.0L Cannula 07/17 1449 97.9 76 18 136/70 99 Nasal 2.0L Cannula 07/17 1435 99 Nasal 2.0L Cannula on exam; aox3, nad. cv; s1,s2, rrr resp; clear abd; soft, nt, bs+ ext; no edema. + dressing on back. Laboratory Tests 07/18 07/17 0710 1603 Chemistry Sodium (137 - 145 mmol/L) 140 Potassium (3.5 - 5.1 mmol/L) 4.4 Chloride (98 - 107 mmol/L) 101 Carbon Dioxide (22 - 30 mmol/L) 28 Anion Gap (5 - 16) 11 BUN (7 - 17 mg/dL) 17 Creatinine (0.5 - 1.0 mg/dL) 0.7 Estimated GFR (>60 ml/min) > 60 BUN/Creatinine Ratio (7 - 25 %) 24.3 Hematology CBC w Diff NO MAN DIFF REQ WBC (4.8 - 10.8 /CUMM) 15.5 H RBC (4.20 - 5.40 /CUMM) 3.74 L Hgb (12.0 - 16.0 G/DL) 10.3 L Hct (37 - 47 %) 30.7 L MCV (81.0 - 99.0 FL) 82.0 MCH (27.0 - 31.0 PG) 27.6 MCHC (33.0 - 37.0 G/DL) 33.6 RDW (11.5 - 14.5 %) 14.4 Plt Count (130 - 400 /CUMM) 248 MPV (7.4 - 10.4 FL) 7.9 Gran % (42.2 - 75.2 %) 79.8 H Lymphocytes % (20.5 - 51.1 %) 12.0 L Monocytes % (1.7 - 9.3 %) 8.1 Eosinophils % (0 - 5 %) 0.1 Basophils % (0.0 - 2.0 %) 0 Absolute Granulocytes (1.4 - 6.5 /CUMM) 12.4 H Absolute Lymphocytes (1.2 - 3.4 /CUMM) 1.9 Absolute Monocytes (0.10 - 0.60 /CUMM) 1.3 H Absolute Eosinophils (0.0 - 0.7 /CUMM) 0 Absolute Basophils (0.0 - 0.2 /CUMM) 0 Assessment and recommendations. 67 y/o F with pmh sig for asthma, hypothyroidism, hypertension, hyperlipidemia, obstructive sleep apnea not on CPAP, chronic back pain, degenerative joint disease, disc herniation, knee osteoarthritis, sciatica, spinal stenosis who is status post Inspection of the lumbosacral fusion mass neurectomies L1-L2 L3-L4. Discectomy L1 to L2 3 L3 4. Lateral fusion with autologous local bone graft L1 through L4. Neuro lysis L2 and L3 nerve roots on the right Fluoroscopy due to Spinal stenosis L1 L2 to L2 L3, L3-L4. Medicine consult was obtained to comanage her medical problems. Medical issues are overall pretty stable. Patient does have leukocytosis but this could be secondary to postoperative stress. Patient has no symptoms of infection at this time. Will monitor and repeat the CBC tomorrow. Breathing status is pretty stable on current inhalers. Continue current management. DVT prophylaxis: ALPS. Thank you will follow along with you.
[2017-07-18 08:11] LABS: ABSOLUTE EOSINOPHIL COUNT 0 /CUMM (0.0-0.7); ABSOLUTE MONOCYTE COUNT 1.3 /CUMM (0.10-0.60); MEAN PLATELET VOLUME 7.9 FL (7.4-10.4)
[2017-07-18 08:43] LABS: ABSOLUTE BASOPHIL COUNT 0 /CUMM (0.0-0.2); ABSOLUTE GRANULOCYTE CT 12.4 /CUMM (1.4-6.5); ABSOLUTE LYMPH COUNT 1.9 /CUMM (1.2-3.4); BASOPHIL % 0 % (0.0-2.0); EOSINOPHIL % 0.1 % (0-5); GRANULOCYTE % 79.8 % (42.2-75.2); HEMATOCRIT 30.7 % (37-47); MEAN CORPUSCULAR HGB 27.6 PG (27.0-31.0); MEAN CORPUSCULAR HGB CONC 33.6 G/DL (33.0-37.0); PLATELET COUNT 248 /CUMM (130-400); RBC DISTRIBUTION WIDTH 14.4 % (11.5-14.5); RED BLOOD CELL CT 3.74 /CUMM (4.20-5.40)
[2017-07-18 08:48] LABS: WHITE BLOOD CELL COUNT 15.5 /CUMM (4.8-10.8)
[2017-07-18 14:46] VITALS: BP 105/62
--- NOTE | 2017-07-18 15:07 | PN- Orthopedic ---
Subjective Subjective: Patient c/o mild expected postop incisional pain. No preop leg pain. No numbness /tingling, weakness. Kate. po. + appetite, +flatus. Voiding without difficulty. Ambulating without assist. Review of Systems: Remarkable for the above complaints. Objective Vital Signs and I&Os Vital Signs Date Time Temp Pulse Resp B/P B/P Pulse O2 O2 Flow FiO2 Mean Ox Delivery Rate 07/18 1446 98.4 79 16 105/62 97 Room Air 07/18 0907 82 132/78 07/18 0625 98.4 85 20 138/80 94 Room Air 07/17 2159 98.2 83 20 108/68 95 07/17 1624 Nasal 2.0L Cannula 07/17 1600 Nasal 2.0L Cannula Intake & Output 07/18 1600 07/18 0800 07/18 0000 07/17 1600 07/17 0800 07/17 0000 Intake Total 6667 421 2334 100 Output Total 099 066 0949 Balance 250 150 -50 100 Intake, IV 200 800 700 Intake, Oral 1000 350 100 Number 0 Bowel Movements Output, Urine [phone] Patient 268 lb Weight Weight Bed scale Measurement Method Physical Exam General Appearance: well developed/nourished, no apparent distress, alert, awake Respiratory: normal breath sounds, chest non-tender, no respiratory distress Cardiovascular: regular rate/rhythm Abdomen: normal bowel sounds, soft, non-tender Back: Incision C/D/I. Dressings changed Extremities: normal inspection, no edema Neurologic/Psychiatric: Neurovascularly intact and stable in alisha. lower extremities with no new or worsening gross motor or sensory loss. Reflexes: 2+: knee (R), knee (L), ankle (R), ankle (L). Skin: intact, normal color, warm/dry Assessment/Plan Assessment/Plan Assessment: S/p Rev. PLDF with local bone right L1-2, L2-3, L3-4 Plan: Continue po Percocet prn pain. Ambulate with Nursing. Bowel regimen D/C home in am. Do's and Don'ts explained. Disch. Instr. given Will F/U as outpatient. Problem List: 1. Hypothyroidism 2. Hypertension 3. Asthma 4. Obstructive sleep apnea 5. Osteoarthritis of knee 6. Migraine 7. Status post cholecystectomy 8. History of bilateral tubal ligation Core Measures Venous Thromboembolism VTE Risk Factors Surgery No Mechanical VTE Prophylaxis d/t Early Ambulation No VTE Pharm Prophylaxis d/t Surgical Contraindication (Spine surgery) Attending MD Review Statement Attending Statement Attending MD Statement: examined this patient, discuss w/resident/PA/COMMODITY SPECIALIST, agreed w/resident/PA/COMMODITY SPECIALIST
[2017-07-18 20:52] VITALS: BP 116/62
[2017-07-19 06:21] VITALS: BP 114/64
[2017-07-19 08:35] VITALS: BP 118/62
--- NOTE | 2017-07-19 12:53 | PN- Orthopedic ---
Subjective Subjective: Patient feeling "great." + mild incisional pain. No leg pain. No preop pain. + flatus. Voiding without difficulty. Ambulating without assist. + appetite. No fever/chills. Review of Systems: Remarkable for the above complaints. Objective Vital Signs and I&Os Vital Signs Date Time Temp Pulse Resp B/P B/P Pulse O2 O2 Flow FiO2 Mean Ox Delivery Rate 07/19 0835 72 118/62 07/19 0621 98.6 69 20 114/64 96 07/18 2051 98.1 80 18 116/62 95 Room Air 07/18 1446 98.4 79 16 105/62 97 Room Air Intake & Output 07/19 1600 07/19 0800 07/19 0000 07/18 1600 07/18 0800 07/18 0000 Intake Total 800 1086 006 9322 Output Total 600 272 403 2121 Balance 200 250 150 50 Intake, IV 200 800 700 Intake, Oral 800 1000 450 Number 0 Bowel Movements Output, Urine 600 093 706 8738 Physical Exam General Appearance: well developed/nourished, no apparent distress, alert, awake , comfortable Respiratory: normal breath sounds, chest non-tender, no respiratory distress Cardiovascular: regular rate/rhythm Abdomen: normal bowel sounds, soft, non-tender Back: Incision C/D/I. Dressing intact. Extremities: normal inspection, normal capillary refill, no edema Neurologic/Psychiatric: Neurovascularly intact with no new or worsening gross motor or sensory loss. Reflexes: 2+: knee (R), knee (L), ankle (R), ankle (L). Skin: intact, normal color, warm/dry Assessment/Plan Assessment/Plan Assessment: s/p Rev. PLDF L1-L4 with local bone Plan: D/C home. D/C IV Follow up as outpatient Do's and Don'ts explained. Continue Percocet Problem List: 1. Hypothyroidism 2. Hypertension 3. Asthma 4. Obstructive sleep apnea 5. Osteoarthritis of knee 6. Migraine 7. Status post cholecystectomy 8. History of bilateral tubal ligation Core Measures Venous Thromboembolism VTE Risk Factors Surgery No Mechanical VTE Prophylaxis d/t Early Ambulation No VTE Pharm Prophylaxis d/t Surgical Contraindication (Spine surgery) Attending MD Review Statement Attending Statement Attending MD Statement: discuss w/resident/PA/WHITTLING ROOM OPERATOR, agreed w/resident/PA/WHITTLING ROOM OPERATOR
[2017-07-19] MEDS ORDERED: VENTOLIN HFA18 GM INH (12:54)
== END 2017-07-19 14:43 | DRG 460 ==
LOC: SDA 03:10 → ENRESERV 13:01 → ENTRNSPT 14:11 → EDTRNSPT 14:27 → EDTRNSPTSTS 14:27 → 2NB 14:33 → CMPTRNSPT 14:36 → ENPENDDIS 07-19 12:57 → 2NB 07-19 14:43
PROVIDERS: Orthopaedic Surgery Orthopaedic Surgery of the Spine
PROC: 0ST20ZZ Resection of Lumbar Vertebral Disc, Open Approach (ICD-10-PCS; principal; 2017-07-17)
PROC: 01NB0ZZ Release Lumbar Nerve, Open Approach (ICD-10-PCS; principal; 2017-07-17)
PROC: 0SG1071 Fusion of 2 or more Lumbar Vertebral Joints with Autologous Tissue Substitute, Posterior Approach, Posterior Column, Open Approach (ICD-10-PCS; principal; 2017-07-17)
DX: M51.17 Intervertebral disc disorders with radiculopathy, lumbosacral region (principal); Z68.41 Body mass index [BMI] 40.0-44.9, adult; D72.829 Elevated white blood cell count, unspecified; E03.9 Hypothyroidism, unspecified; Z88.8 Allergy status to other drugs, medicaments and biological substances; G47.33 Obstructive sleep apnea (adult) (pediatric); I10 Essential (primary) hypertension; G43.909 Migraine, unspecified, not intractable, without status migrainosus; E78.5 Hyperlipidemia, unspecified; M17.0 Bilateral primary osteoarthritis of knee; M48.07 Spinal stenosis, lumbosacral region; J45.909 Unspecified asthma, uncomplicated; Z90.49 Acquired absence of other specified parts of digestive tract; Z83.3 Family history of diabetes mellitus; Z82.49 Family history of ischemic heart disease and other diseases of the circulatory system; Z79.51 Long term (current) use of inhaled steroids; E66.9 Obesity, unspecified; K59.00 Constipation, unspecified
CPT/HCPCS: 2NBP; 36592; 72020; 82436; 97116-GO; 97161-GP; C9399; J0131; J0690; J3250; J3490; J7120